=== PATIENT | male | born 1950 | race Caucasian/White ===

== ENCOUNTER 2016-10-27 11:46 | Emergency (ER) | payer MEDICARE ==
[~2016-10-27] VITALS: Ht 182.9 cm; Wt 79.8 kg
[2016-10-27 11:50] VITALS: BP 123/67
[2016-10-27] MEDS ORDERED: IV NORMAL SALINE 1000ML BAG 1,000 ML IV SCH (12:14)
[2016-10-27 12:31] LABS: CALCIUM 8.7 mg/dL (8.5-10.1); CREATININE 1.4 mg/dL (0.7-1.3); GFR 50.5; POTASSIUM 4.2 mmol/L (3.5-5.1)
--- NOTE | 2016-10-27 12:32 | RAD ---
Indication fever and weakness for day. AP views of the chest were obtained. Note is made of a previous examination 12/10/2014. There are probable background changes of emphysema or fibrosis. There is a calcified granuloma in the left upper lobe. Heart and pulmonary vessels are normal. There is no focal infiltrate. Significant pleural fluid is not seen and there is no pneumothorax. Mild scoliosis is noted. IMPRESSION: No acute or focal process seen in the chest
[2016-10-27 12:33] LABS: BASO # 0.1 x10^3/uL (0.0-0.2); BASO % 1 % (0-3); EOS % 0 % (0-3); HEMATOCRIT 46.1 % (39.0-53.0); HEMOGLOBIN 15.4 g/dL (13.0-17.5); LYMPH # 0.5 x10^3/uL (1.0-4.8); LYMPH % 7 % (24-48); MEAN CORPUSCULAR HEMOGLOBIN 29 pg (25-35); MEAN CORPUSCULAR HGB CONC 33 g/dL (31-37); MEAN CORPUSCULAR VOLUME 88 fL (79-100); MONO % 10 % (0-9); NEUT % 82 % (31-73); PLATELET COUNT 182 x10^3/uL (140-400); RED BLOOD COUNT 5.22 x10^6/uL (4.30-5.70); RED CELL DISTRIBUTION WIDTH 14.7 % (11.5-14.5); WHITE BLOOD COUNT 7.7 x10^3/uL (4.0-11.0)
[2016-10-27 12:35] LABS: ALBUMIN 3.3 g/dL (3.4-5.0); ALBUMIN/GLOBULIN RATIO 0.8 (1.0-1.7); TOTAL BILIRUBIN 0.7 mg/dL (0.2-1.0); TOTAL PROTEIN 7.4 g/dL (6.4-8.2)
[2016-10-27 12:52] LABS: OBC FLU VALID
--- NOTE | 2016-10-27 14:01 | EKG ---
[facility] [address] [place] [address] Test Date: 2016-10-27 Test Time: 14:14:47 Pat Name: JOSE MCGEE Department: Room: Gender: M Ip Attorney: : 1950 Requested By: TREV KENT Order Number: [id number] Reading MD: Veda Mejía Measurements Intervals [place] Rate: 95 P: 68 IN: 134 QRS: 4 QRSD: 86 T: 59 QT: 342 QTc: 433 Interpretive Statements SINUS RHYTHM ATRIAL PREMATURE COMPLEX(ES) LOW LIMB LEAD VOLTAGE RI6.01 Unconfirmed report Compared to ECG 12/10/2014 11:56:52 No significant changes Electronically Signed On 10-31-2016 15:33:54 [employer] by Veda Mejía
[2016-10-27] MEDS ORDERED: KETOROLAC TROMETHAMINE 30 MG/ML SYRINGE. IV ONE (14:30)
--- NOTE | 2016-10-27 14:31 | PHYS DOC ---
Past Medical History Past Medical History: Other Additional Past Medical Histor: bronchitis Past Surgical History: No Surgical History Alcohol Use: None Drug Use: None Adult General Chief Complaint Chief Complaint: WEAKNESS/GENERALIZED HPI HPI Patient is a 66 year old male who comes from home with the complaint of generalized weakness and fever for 1-2 days. He has no history of COPD. He did not have a flu shot last fall. Denies GI symptoms. He's had aches and pains. He is a smoker. He currently does not have a primary care physician because his physician retired and he hasn't gotten another one. Review of Systems Review of Systems Constitutional: Fever for one to 2 days Eyes: Denies change in visual acuity, redness, or eye pain [] HENT: Denies nasal congestion or sore throat [] Respiratory: Denies cough or shortness of breath [] Cardiovascular: Denies chest pain GI: Denies abdominal pain, nausea, vomiting, bloody stools or diarrhea [] : Denies dysuria or hematuria [] Musculoskeletal: Generalized muscle aches and pains Integument: Denies rash or skin lesions [] Neurologic: Denies headache, focal weakness or sensory changes [] Current Medications Current Medications Current Medications Medications (Trade) Dose Ordered Sig/Wai Start Time Stop Time Status Last Admin Dose Admin Ketorolac Tromethamine (Toradol) 30 mg 1X ONCE 10/27/16 14:30 10/27/16 14:31 DC 10/27/16 14:39 30 MG Sodium Chloride (Iv Sodium Chloride 0.9% 1000ml Bag) 1,000 ml @ 1,000 mls/hr Q1H 10/27/16 12:14 10/27/16 13:13 DC 10/27/16 12:19 1,000 MLS/HR Allergies Allergies Allergies Coded Allergies Type Severity Reaction Last Updated Verified No Known Drug Allergies 12/10/14 No Physical Exam Physical Exam Constitutional: Well developed, well nourished, no acute distress, non-toxic appearance. Appears to not feel well but nontoxic. Alert and mentating normally. HENT: Normocephalic, atraumatic, bilateral external ears normal, nose normal. [] Eyes: conjunctiva normal, no discharge. [] Neck: Normal range of motion, no stridor. [] Cardiovascular:Heart rate regular rhythm, no murmur [] Lungs & Thorax: Bilateral breath sounds clear to auscultation [] Abdomen: Bowel sounds normal, soft, no tenderness, no masses, no pulsatile masses. [] Skin: Warm, dry, no erythema, no rash. [] Extremities: No tenderness, no cyanosis, no clubbing, ROM intact, no edema. [] Neurologic: Alert and oriented X 3, normal motor function, normal sensory function, no focal deficits noted. [] Current Patient Data Vital Signs Vital Signs Date Time Temp Pulse Resp B/P Pulse Ox O2 Delivery O2 Flow Rate FiO2 10/27/16 11:50 98.5 109 18 123/67 93 Room Air 98.5 Lab Values Laboratory Tests Test 10/27/16 12:01 10/27/16 12:20 White Blood Count 7.7x10^3/uL (4.0-11.0) Red Blood Count 5.22x10^6/uL (4.30-5.70) Hemoglobin 15.4g/dL (13.0-17.5) Hematocrit 46.1% (39.0-53.0) Mean Corpuscular Volume 88fL (79-100) Mean Corpuscular Hemoglobin 29pg (25-35) Mean Corpuscular Hemoglobin Concent 33g/dL (31-37) Red Cell Distribution Width 14.7% (11.5-14.5) H Platelet Count 182x10^3/uL (140-400) Neutrophils (%) (Auto) 82% (31-73) H Lymphocytes (%) (Auto) 7% (24-48) L Monocytes (%) (Auto) 10% (0-9) H Eosinophils (%) (Auto) 0% (0-3) Basophils (%) (Auto) 1% (0-3) Neutrophils # (Auto) 6.4x10^3uL (1.8-7.7) Lymphocytes # (Auto) 0.5x10^3/uL (1.0-4.8) L Monocytes # (Auto) 0.8x10^3/uL (0.0-1.1) Eosinophils # (Auto) 0.0x10^3/uL (0.0-0.7) Basophils # (Auto) 0.1x10^3/uL (0.0-0.2) Sodium Level 137mmol/L (136-145) Potassium Level 4.2mmol/L (3.5-5.1) Chloride Level 101mmol/L (98-107) Carbon Dioxide Level 27mmol/L (21-32) Anion Gap 9 (6-14) Blood Urea Nitrogen 18mg/dL (8-26) Creatinine 1.4mg/dL (0.7-1.3) H Estimated GFR (Cockcroft-Gault) 50.5 BUN/Creatinine Ratio 13 (6-20) Glucose Level 108mg/dL (70-99) H Calcium Level 8.7mg/dL (8.5-10.1) Total Bilirubin 0.7mg/dL (0.2-1.0) Aspartate Amino Transferase (AST) 26U/L (15-37) Alanine Aminotransferase (ALT) 33U/L (16-63) Alkaline Phosphatase 56U/L (46-116) Total Protein 7.4g/dL (6.4-8.2) Albumin 3.3g/dL (3.4-5.0) L Albumin/Globulin Ratio 0.8 (1.0-1.7) L Influenza Type A Antigen Negative (NEGATIVE) Influenza Type B Antigen Negative (NEGATIVE) Laboratory Tests 10/27/16 12:01 Laboratory Tests 10/27/16 12:01 EKG EKG 12-lead EKG read by me. Sinus rhythm. Heart rate 95. There are no acute ST or T wave changes indicative of ischemia or infarction. No STEMI. 1414 [] Radiology/Procedures Radiology/Procedures One view portable chest x-ray read by the radiologist. No acute process. [] Course & Med Decision Making Course & Med Decision Making Pertinent Labs and Imaging studies reviewed. (See chart for details) 66-year-old male in good general health comes in with a 1-2 day history of what sounds like a viral syndrome. Chest x-ray is clear, blood work unremarkable. The patient was given a liter of IV fluids. Family members are here to take him home. Influenza negative, likely other viral syndrome influenza-like. [] Dragon Disclaimer Dragon Disclaimer This electronic medical record was generated, in whole or in part, using a voice recognition dictation system. Departure Departure Impression: Primary Impression: Viral syndrome Disposition: HOME, SELF-CARE Condition: STABLE Referrals: NO PCP (PCP) Patient Instructions: Viral Syndrome Additional Instructions: Rest, fluids, Ibuprofen for aches and pains. TREV KENT MD Oct 27, 2016 14:31
== END 2016-10-27 14:45 | disposition home or self-care (01) ==
LOC: ER 11:46
DX: B34.9 Viral infection, unspecified (principal); R53.1 Weakness
CPT/HCPCS: 36415; 71010; 80053; 82947; 85027; 87804; 93005; 96361; 96374; 99285; J1885; J7030

== ENCOUNTER 2019-09-14 12:53 | Emergency (ER) | payer MEDICARE ==
[~2019-09-14] VITALS: Ht 182.9 cm; Wt 79.8 kg
[2019-09-14 14:19] VITALS: BP 133/82
--- NOTE | 2019-09-14 15:15 | PHYS DOC ---
Past Medical History Past Medical History: Other Additional Past Medical Histor: bronchitis Past Surgical History: No Surgical History Alcohol Use: None Drug Use: None Adult General Chief Complaint Chief Complaint: Congestion HPI HPI Patient is a 69 year old male patient presenting to the ED today complaining of nasal congestion with sinus pressure for 2 days. Denies any fever. Review of Systems Review of Systems Constitutional: Denies fever or chills [] Eyes: Denies change in visual acuity, redness, or eye pain [] HENT: Reports nasal congestion and sinus pressure, denies sore throat [] Respiratory: Denies cough or shortness of breath [] Cardiovascular: No additional information not addressed in HPI [] GI: Denies abdominal pain, nausea, vomiting, bloody stools or diarrhea [] : Denies dysuria or hematuria [] Musculoskeletal: Denies back pain or joint pain [] Integument: Denies rash or skin lesions [] Neurologic: Denies headache, focal weakness or sensory changes [] All other systems were reviewed and found to be within normal limits, except as documented in this note. Allergies Allergies Allergies Coded Allergies Type Severity Reaction Last Updated Verified No Known Drug Allergies 12/10/14 No Physical Exam Physical Exam Constitutional: Well developed, well nourished, no acute distress, non-toxic appearance. [] HENT: Normocephalic, atraumatic, bilateral external ears normal, oropharynx moist, no oral exudates, nose normal. [] Eyes: PERRLA, EOMI, conjunctiva normal, no discharge. [] Neck: Normal range of motion, no tenderness, supple, no stridor. [] Cardiovascular:Heart rate regular rhythm, no murmur [] Lungs & Thorax: Bilateral breath sounds clear to auscultation [] Abdomen: Bowel sounds normal, soft, no tenderness, no masses, no pulsatile masses. [] Skin: Warm, dry, no erythema, no rash. [] Back: No tenderness, no CVA tenderness. [] Extremities: No tenderness, no cyanosis, no clubbing, ROM intact, no edema. [] Neurologic: Alert and oriented X 3, normal motor function, normal sensory function, no focal deficits noted. [] Psychologic: Affect normal, judgement normal, mood normal. [] Current Patient Data Vital Signs Vital Signs Date Time Temp Pulse Resp B/P (MAP) Pulse Ox O2 Delivery O2 Flow Rate FiO2 12/27/19 14:19 98.0 100 22 133/82 (99) 92 Room Air 98.0 EKG EKG [] Radiology/Procedures Radiology/Procedures [] Course & Med Decision Making Course & Med Decision Making Pertinent Labs and Imaging studies reviewed. (See chart for details) This is a 69-year-old male patient presenting to the ED today with nasal congestion and sinus pressure for 2 days. Patient does not meet criteria for sinusitis. Supportive care measures recommended. Dragon Disclaimer Dragon Disclaimer This electronic medical record was generated, in whole or in part, using a voice recognition dictation system. Departure Departure Impression: Primary Impression: URI (upper respiratory infection) Disposition: 01 HOME, SELF-CARE Condition: STABLE Referrals: ROSANGELA NAQVI MD (PCP) Problem Qualifiers Primary Impression: URI (upper respiratory infection) URI type: unspecified URI Qualified Codes: J06.9 - Acute upper respiratory infection, unspecified YEYO MORTENSEN LADLE WATCHER Sep 14, 2019 15:15
== END 2019-09-14 15:19 | disposition home or self-care (01) ==
LOC: ER 12:53
DX: J06.9 Acute upper respiratory infection, unspecified (principal)
CPT/HCPCS: 99281

== ENCOUNTER 2020-06-23 08:24 | Emergency (ER) | payer MEDICARE ==
[~2020-06-23] VITALS: Ht 182.9 cm; Wt 76.0 kg
[2020-06-23] MEDS ORDERED: IV NORMAL SALINE 1000ML BAG 1,000 ML IV ONE (09:15)
[2020-06-23 09:53] LABS: BASO % 0 % (0-3); EOS % 0 % (0-3); HEMATOCRIT 45.1 % (39.0-53.0); HEMOGLOBIN 15.5 g/dL (13.0-17.5); LYMPH # 0.6 x10^3/uL (1.0-4.8); LYMPH % 11 % (24-48); MEAN CORPUSCULAR HEMOGLOBIN 30 pg (25-35); MEAN CORPUSCULAR HGB CONC 34 g/dL (31-37); MEAN CORPUSCULAR VOLUME 86 fL (79-100); MONO # 0.5 x10^3/uL (0.0-1.1); MONO % 8 % (0-9); NEUT # 4.8 x10^3/uL (1.8-7.7); NEUT % 81 % (31-73); PLATELET COUNT 186 x10^3/uL (140-400); RED BLOOD COUNT 5.23 x10^6/uL (4.30-5.70); RED CELL DISTRIBUTION WIDTH 14.1 % (11.5-14.5)
--- NOTE | 2020-06-23 09:53 | PHYS DOC ---
Past Medical History Past Medical History: Other Additional Past Medical Histor: bronchitis Past Surgical History: No Surgical History Smoking Status: Current Every Day Smoker Alcohol Use: None Drug Use: None General Adult EDM: Chief Complaint: FATIGUE HPI: HPI: Patient is a 69 year old male who presented to ER for evaluation of upper respiratory infection, sinus congestion, productive cough with clear sputum, b momo aches for 10 days. Patient denies any chest pain, no abdominal pain. Patient feels weak and had no energy. Patient denies being exposed to anybody who tested positive for COVID-19. Review of Systems: Review of Systems: Constitutional: Denies fever or chills. [] Eyes: Denies change in visual acuity. [] HENT: Positive for nasal congestion or sore throat. [] Respiratory: Positive for cough, no trouble breathing.] Cardiovascular: Denies chest pain or edema. [] GI: Denies abdominal pain, nausea, vomiting, bloody stools or diarrhea. [] : Denies dysuria. [] Musculoskeletal: Denies back pain or joint pain. [] Integument: Denies rash. [] Neurologic: Denies headache, focal weakness or sensory changes. [] Endocrine: Denies polyuria or polydipsia. [] Lymphatic: Denies swollen glands. [] Psychiatric: Denies depression or anxiety. [] Heart Score: Risk Factors: Risk Factors: DM, Current or recent (<one month) smoker, HTN, HLP, family history of CAD, obesity. Risk Scores: Score 0 - 3: 2.5% MACE over next 6 weeks - Discharge Home Score 4 - 6: 20.3% MACE over next 6 weeks - Admit for Clinical Observation Score 7 - 10: 72.7% MACE over next 6 weeks - Early Invasive Strategies Current Medications: Current Medications Medications (Trade) Dose Ordered Sig/Wai Start Time Stop Time Status Last Admin Dose Admin Sodium Chloride 1,000 ml @ 1,000 mls/hr 1X ONCE 06/23/20 09:15 06/23/20 10:14 06/23/20 09:38 1,000 MLS/HR Allergies: Allergies: Allergies Coded Allergies Type Severity Reaction Last Updated Verified No Known Drug Allergies 12/10/14 No Physical Exam: PE: Constitutional: Well developed, well nourished, no acute distress, non-toxic appearance. [] HENT: Normocephalic, atraumatic, bilateral external ears normal, oropharynx is dried, no oral exudates, nose normal. [] Eyes: PERRLA, EOMI, conjunctiva normal, no discharge. [] Neck: Normal range of motion, no tenderness, supple, no stridor. [] Cardiovascular:Heart rate regular rhythm, no murmur [] Lungs & Thorax: Bilateral breath sounds clear to auscultation [] Abdomen: Bowel sounds normal, soft, no tenderness, no masses, no pulsatile masses. [] Skin: Warm, dry, no erythema, no rash. [] Back: No tenderness, no CVA tenderness. [] Extremities: No tenderness, no cyanosis, no clubbing, ROM intact, no edema. [] Neurologic: Alert and oriented X 3, normal motor function, normal sensory function, no focal deficits noted. [] Psychologic: Affect normal, judgement normal, mood normal. [] Current Patient Data: Vital Signs: Vital Signs Date Time Temp Pulse Resp B/P (MAP) Pulse Ox O2 Delivery O2 Flow Rate FiO2 06/23/20 09:03 84 22 126/67 (86) 98 Room Air 06/23/20 08:55 97.5 97.5 EKG: EKG: [] Radiology/Procedures: Radiology/Procedures: [][facility] [address] [place], [place] [id number] IMAGING REPORT Signed PATIENT: JOSE MCGEE ACCOUNT: [id number] : 1950 LOCATION: ER AGE: 69 SEX: M EXAM STATUS: REG ER ORD. PHYSICIAN: KASSY ALEJANDRO DO REASON: cough for 10 days PROCEDURE: CHEST AP ONLY EXAM: CHEST AP ONLY 06/23/2020 9:15 AM CLINICAL INDICATION:Postoperative day COMPARISON:Chest radiograph 10/27/2016 TECHNIQUE:AP upright view of the chest FINDINGS:The heart and mediastinum are normal. Lungs are well-expanded. Calcified granuloma in the left apex is unchanged. There is no consolidation, pleural effusion, or pneumothorax. No acute osseous abnormality. IMPRESSION:No acute cardiopulmonary abnormality. Electronically signed by: Devi Galvez MD (06/23/2020 9:55 AM) [id number] DICTATED and SIGNED BY: DEVI GALVEZ MD DATE: 06/23/20 0955 Course & Med Decision Making: Course & Med Decision Making Pertinent Labs and Imaging studies reviewed. (See chart for details) Patient is a 69-year-old male who was evaluated in ER due to upper respiratory infection, viral symptoms. Patient was tested for COVID-19 however results are pending at this time. Patient is stable, vital signs normal chest x-ray did not show any acute infiltration. Patient will be discharged home. Dragon Disclaimer: Dragon Disclaimer: This electronic medical record was generated, in whole or in part, using a voice recognition dictation system. Departure Departure Impression: Primary Impression: URI (upper respiratory infection) Additional Impression: Suspected 2019 novel coronavirus infection Disposition: HOME, SELF-CARE Condition: IMPROVED Referrals: ROSANGELA NAQVI MD (PCP) please call your doctor for follow up this week. Patient Instructions: Upper Respiratory Infection, Adult Additional Instructions: You have been tested for or diagnosed with COVID-19. It is an infection caused by a new type of coronavirus. COVID-19 will cause cold-like or mild flu symptoms in most. It can cause more severe symptoms like problems breathing in some. There is no treatment for COVID-19. The body will clear the infection over time. Self-care will help to ease discomfort. Steps to Take: Self-Care Rest as needed. Healthy habits may help you feel better. Steps include: Choose healthy foods including fruits and vegetables. Drink water throughout the day. Get plenty of sleep each night. If you smoke, try to quit. It may ease breathing. Avoid alcohol. Keep Others Healthy The virus can spread to others. Droplets are released every time you sneeze or cough. The droplets can get into the mouth, nose, or eyes of people near you and lead to infection. To lower the chances of spreading COVID-19 to others: Stay at home until your doctor has said it is safe to leave. If you tested positive this will mean staying isolated until both of the following are true: At least 7 days have passed since the start of illness. You are free of fever for at least 72 hours without the use of medicine. During this time: - Avoid public areas, events, or transportation. Do not return to work or school until your doctor has said it is safe to do so. - Call ahead if you need to go to a medical center. Let them know you may have COVID-19. It will help them guide you where to go. They may also ask you to wear a facemask when you come to the office. - If you call for emergency medical services, let them know you may have COVID- 19. While at home: - Try to avoid close contact with others. Stay about 6 feet away. - If possible, spend most of your time in a separate room from others. - Use a face mask if you will be in close contact with others such as sharing a room or vehicle. - Have someone wipe down common surfaces in the home. Use household education teacher every day on areas like doorknobs, counters, or sinks. - Cough or sneeze into a tissue. Throw the tissue away right after use. If a tissue is not available, cough or sneeze into your elbow. - Wash your hands often. Wash them after sneezing or coughing. Use soap and water and wash for at least 20 seconds. Alcohol based hand telephone cleaner can be used if soap and water is not available. - Do not prepare food for others. Avoid sharing personal items like forks, spoons, or toothbrushes. - Avoid close contact with pets while you are sick. There is no evidence of the virus passing to pets. This is a safety step until more is known about this virus. Isolation can be frustrating. Social interaction can help. Keep in touch with friends and family through phone and tech options. You can still interact with others in your home, just keep a safe distance of about 6 feet. Follow-up: Your doctors office will check in with you to see if there are any changes in your health. You may be asked to keep track of symptoms to share with them. They will also let you know when you are clear to be in public again. Problems to Look Out For: Contact your doctor if your recovery is not going as you expect. Get emergency care if you have problems such as: - Trouble breathing - Nonstop chest pain or pressure - Changes in awareness, confusion, or problems waking - Lips or face have bluish color - Worsening of symptoms If you think you have an emergency, call for emergency medical services right a way. As taken from [facility] KASSY Gutierrez DO Jun 23, 2020 09:53
--- NOTE | 2020-06-23 09:58 | RAD ---
EXAM: CHEST AP ONLY 06/23/2020 9:15 AM CLINICAL INDICATION:Postoperative day COMPARISON:Chest radiograph 10/27/2016 TECHNIQUE:AP upright view of the chest FINDINGS:The heart and mediastinum are normal. Lungs are well-expanded. Calcified granuloma in the left apex is unchanged. There is no consolidation, pleural effusion, or pneumothorax. No acute osseous abnormality. IMPRESSION:No acute cardiopulmonary abnormality. Electronically signed by: Devi Galvez MD (06/23/2020 9:55 AM) [id number]
[2020-06-23 10:11] LABS: ALBUMIN 3.2 g/dL (3.4-5.0); ALBUMIN/GLOBULIN RATIO 0.7 (1.0-1.7); CALCIUM 8.8 mg/dL (8.5-10.1); CREATININE 1.2 mg/dL (0.7-1.3); GFR 59.9; MAGNESIUM 1.8 mg/dL (1.8-2.4); POTASSIUM 3.9 mmol/L (3.5-5.1); TOTAL BILIRUBIN 0.6 mg/dL (0.2-1.0); TOTAL PROTEIN 7.5 g/dL (6.4-8.2)
[2020-06-23 11:33] VITALS: BP 131/79
--- NOTE | 2020-06-24 11:10 | NUR ---
IP: Informed pt of positive COVID test and need to quarantine for 14 days. Pt verbalized understanding.
== END 2020-06-23 11:55 | disposition home or self-care (01) ==
LOC: ER 08:24
DX: U07.1 COVID-19 (principal); J06.9 Acute upper respiratory infection, unspecified; R09.81 Nasal congestion; R05 Cough; F17.200 Nicotine dependence, unspecified, uncomplicated
CPT/HCPCS: 36415; 71045; 80053; 83735; 85025; 96360; 99285; C9803; J7030; U0003

== ENCOUNTER → 2021-02-03 | Outpatient (CLI) | payer MEDICARE ==
--- NOTE | 2021-02-03 10:32 | RAD ---
EXAM: Chest, 2 views. HISTORY: Shortness of air. COMPARISON: 06/23/2020. FINDINGS: views of the chest are obtained. There is no infiltrate, pleural effusion or pneumothorax. There is a calcified granuloma within the left upper lobe. The heart is normal in size. There is hype rinflation likely due to emphysema. There is a chronic mild wedge compression deformity of a midthora cic vertebral body. There is thoracic scoliosis. IMPRESSION: No acute pulmonary finding. Electronically signed by: Luci Arteaga MD (02/03/2021 10:29 AM) [id number]
--- NOTE | 2021-02-03 10:57 | RAD ---
EXAM: Chest CT low dose lung cancer screening without intravenous contrast. HISTORY: Shortness of air. Cigarette smoking. TECHNIQUE: Computed tomographic images of the chest were obtained without contrast. Multiplanar refor matting was performed. *One or more of the following individualized dose reduction techniques were utilized for this examina tion: 1. Automated exposure control. 2. Adjustment of the mA and/or kV according to patient size. 3. Use of iterative reconstruction technique. COMPARISON: None. FINDINGS: There is moderate to severe pulmonary emphysema with a prominent left perihilar bulla and m ultiple subpleural blebs. There is a calcified granuloma within the left lung apex. There is biapical pleural parenchymal scarring. There is no pneumothorax or pleural effusion. There is a spiculated right suprahilar mass measuring approximately 2.7 cm. There are multiple small groundglass nodular opacities measuring approximately 3 to 4 mm within the anterior medial right uppe r lobe. There is a 5 mm pleural-based nodular opacity at the posterior right upper lobe likely due to adjacent scarring. The heart is normal in size. There are nonspecific mediastinal and hilar lymph nodes. This includes a prominent right hilar lymph node measuring 1.8 cm. There is right perihilar bronchial wall thickenin g and narrowing of the right mainstem bronchus. There are degenerative changes throughout the visuali zed spine. There is no acute or suspicious osseous lesion. IMPRESSION: 1. 2.7 cm spiculated right suprahilar mass, the appearance of which favors primary lung malignancy. L livia RADS Category 4B: PET/CT and/or tissue sampling is recommended. 2. Multiple tiny adjacent groundglass nodular opacities within the anterior medial right upper lobe m easuring up to 4 mm. These may be postinfectious or postinflammatory. Attention at the time of follow -up is recommended. 3. Prominent right hilar lymph node, possibly reactive or neoplastic given the aforementioned suprahi lar mass. 4. Right perihilar bronchial wall thickening and slight narrowing of the right mainstem bronchus. Thi s may be due to the sequela of bronchitis or the adjacent suspected suprahilar neoplasm. 5. Severe emphysema. Electronically signed by: Luci Arteaga MD (02/03/2021 10:55 AM) [id number]
== END ==
LOC: CT 10:46
PROVIDERS: ATTEND Nurse Practitioner Gerontology
DX: J98.4 Other disorders of lung (principal); R06.02 Shortness of breath; Z86.16 Personal history of COVID-19; Z87.891 Personal history of nicotine dependence
CPT/HCPCS: 71046; 71271